=== PATIENT | female | born 1960 | race Caucasian/White ===

== ENCOUNTER 2020-11-02 12:02 | Emergency (ER) | payer SELFPAY ==
[~2020-11-02] VITALS: Ht 160 cm; Wt 69.0 kg
[~2020-11-02 12:02] MED LIST: NAPROSYN500 MG PO; OXYCODONE5 M1 PO; PERCOCET 10/31 COMBO PO; TYLENOL 500MG TAB PO
[2020-11-02 12:18] VITALS: BP 171/91
[2020-11-02] MEDS ORDERED: GLIPIZIDE10 MG PO (12:20)
[2020-11-02] MEDS ORDERED: METFORMIN HYD1000 MG PO (12:20)
[2020-11-02] MEDS ORDERED: LISINOPRIL10 MG PO (12:21)
[2020-11-02] MEDS ORDERED: ALEVE220 M2 PO (13:27)
== END 2020-11-02 13:38 | disposition home or self-care (01) | DRG 563 ==
LOC: ED 12:02
DX: S83.92XA Sprain of unspecified site of left knee, initial encounter (principal); E11.9 Type 2 diabetes mellitus without complications; I10 Essential (primary) hypertension; X50.0XXA Overexertion from strenuous movement or load, initial encounter; Y93.89 Activity, other specified; Y92.810 Car as the place of occurrence of the external cause; Z79.84 Long term (current) use of oral hypoglycemic drugs